=== PATIENT | female | born 1955 | race Caucasian/White ===

== ENCOUNTER → 2016-08-11 | Outpatient (CLI) | payer OTHER ==
[~2016-08-11] MED LIST: CALC600T12 PO; OMEG340C PO; PRIMROSE OIL PO; PROBCAP4 PO; TAB-TAB PO; THYROID SUPPORT PO; TURMCAP PO; VITA500015 PO; VITATAB11 PO; [UNRECOGNIZED DRUG - CODE] PO
[2016-08-11 12:34] LABS: BACTERIA, URINE RARE /hpf; BLOOD, URINE NEG (NEG); GLUCOSE,URINE NEG (NEG); KETONE, URINE NEG (NEG); MUCUS URINE FEW /lpf (OCC); NITRITE,URINE NEG (NEG); SQUAMOUS EPITHELIAL CELL URINE <1 /hpf (0-5); URINE COLOR LIGHT-YELLOW (YELLW/STRAW)
== END ==
LOC: OLAB 07:57
PROVIDERS: ATTEND Obstetrics & Gynecology
DX: N39.0 Urinary tract infection, site not specified (principal); B96.89 Other specified bacterial agents as the cause of diseases classified elsewhere
CPT/HCPCS: 81001; 87077; 87086; 87186

== ENCOUNTER → 2017-09-27 | Outpatient (CLI) | payer OTHER ==
[2017-09-27 16:55] LABS: AUTOMATED NEUTROPHIL # 1.9 TH/MM3 (1.8-7.7); BASOPHIL % 1.4 % (0.0-2.0); EOSINOPHIL # 0.1 TH/MM3 (0-0.4); EOSINOPHIL % 2.9 % (0.0-4.0); HEMATOCRIT 36.1 % (35.0-46.0); HEMOGLOBIN 12.1 GM/DL (11.6-15.3); LYMPH % 17.3 % (9.0-44.0); LYMPHOCYTE # 0.5 TH/MM3 (1.0-4.8); MEAN CELL VOLUME 92.6 FL (80.0-100.0); MEAN CORPUSCULAR HGB CONC 33.5 % (32.0-36.0); MEAN PLATELET VOLUME 10.8 FL (7.0-11.0); MONO % 12.4 % (0.0-8.0); MONOCYTE # 0.4 TH/MM3 (0-0.9); PLATELET COUNT 188 TH/MM3 (150-450); RED CELL DISTRIBUTION WIDTH 13.6 % (11.6-17.2); WHITE BLOOD COUNT 2.8 TH/MM3 (4.0-11.0)
[2017-09-27 17:03] LABS: ALBUMIN 3.7 GM/DL (3.4-5.0); AST (GOT) 29 U/L (15-37); BICARBONATE 28.5 MEQ/L (21.0-32.0); BLOOD UREA NITROGEN 10 MG/DL (7-18); CHLORIDE 104 MEQ/L (98-107); CREATININE 0.76 MG/DL (0.50-1.00); GLOMERULAR FILTRATION RATE 77 ML/MIN (>89); GLUCOSE,FASTING 81 MG/DL (74-99); SODIUM (NA) 138 MEQ/L (136-145)
[2017-09-27 17:04] LABS: ALT (GPT) 30 U/L (10-53)
[2017-09-27 17:30] LABS: ALKALINE PHOSPHATASE 75 U/L (45-117); TOTAL BILIRUBIN ADULT 0.2 MG/DL (0.2-1.0); TOTAL PROTEIN 7.7 GM/DL (6.4-8.2)
[2017-09-30 19:52] LABS: A FUMIGATUS LESS THAN 0.10 kU/L; A FUMIGATUS CLASS 0; A TENUIS LESS THAN 0 kU/L; A TENUIS CLASS 0; BAHIA GRASS LESS THAN 0.10 kU/L; BAHIA GRASS CLASS 0; BERMUDA GRASS LESS THAN 0.10 kU/L; BERMUDA GRASS CLASS 0; BIRCH LESS THAN 0.10 kU/L; BIRCH CLASS 0; C HERBARUM LESS THAN 0.10 kU/L; C HERBARUM CLASS 0; CAT DANDER LESS THAN 0.10 kU/L; CAT DANDER CLASS 0; COCKROACH LESS THAN 0.10 kU/L; COCKROACH CLASS 0; CODFISH CLASS 0; CODFISH IGE LESS THAN 0.10 kU/L; COMMON PIGWEED LESS THAN 0.10 kU/L; COMMON PIGWEED CLASS 0; COMMON RAGWEED LESS THAN 0.10 kU/L; COMMON RAGWEED CLASS 0; COWS MILK CLASS 0; COWS MILK IGE LESS THAN 0.10 kU/L; D FARINAE LESS THAN 0.10 kU/L; D FARINAE CLASS 0; D PTERONYSSINUS LESS THAN 0.10 kU/L; D PTERONYSSINUS CLASS 0; DOG DANDER LESS THAN 0.10 kU/L; DOG DANDER CLASS 0; EGG WHITE LESS THAN 0.10 kU/L; EGG WHITE CLASS 0; ELM LESS THAN 0.10 kU/L; ELM CLASS 0; IMMUNOGLOBULIN E 50 kU/L (114 OR LESS); MAPLE (BOX ELDER) LESS THAN 0.10 kU/L; MAPLE (BOX ELDER) CLASS 0; MOUNTAIN CEDAR LESS THAN 0.10 kU/L; MOUNTAIN CEDAR CLASS 0; NETTLE LESS THAN 0.10 kU/L; NETTLE CLASS 0; OAK WHITE LESS THAN 0.10 kU/L; OAK WHITE CLASS 0; P NOTATUM LESS THAN 0.10 kU/L; P NOTATUM CLASS 0; PEANUT LESS THAN 0.10 kU/L; PEANUT CLASS 0; PECAN TREE LESS THAN 0.10 kU/L; PECAN TREE CLASS 0; SCALLOP LESS THAN 0.10 kU/L; SCALLOP CLASS 0; SESAME SEED LESS THAN 0.10 kU/L; SESAME SEED CLASS 0; SHEEP SORREL LESS THAN 0.10 kU/L; SHEEP SORREL CLASS 0; SHRIMP LESS THAN 0.10 kU/L; SHRIMP CLASS 0; SOYBEAN LESS THAN 0.10 kU/L; SOYBEAN CLASS 0; TIMOTHY GRASS LESS THAN 0.10 kU/L; TIMOTHY GRASS CLASS 0; WALNUT LESS THAN 0.10 kU/L; WALNUT CLASS 0; WHEAT LESS THAN 0.10 kU/L; WHEAT CLASS 0
== END ==
LOC: PLAB 14:13
PROVIDERS: ATTEND Family Medicine
DX: L50.8 Other urticaria (principal); Z83.49 Family history of other endocrine, nutritional and metabolic diseases; D72.819 Decreased white blood cell count, unspecified; R74.8 Abnormal levels of other serum enzymes; E78.2 Mixed hyperlipidemia; E55.9 Vitamin D deficiency, unspecified; Z11.59 Encounter for screening for other viral diseases; E53.8 Deficiency of other specified B group vitamins
CPT/HCPCS: 36415; 80053; 82172; 82306; 82607; 82785; 84443; 85025; 86003; 86803

== ENCOUNTER → 2017-10-29 | Outpatient (CLI) | payer OTHER ==
[2017-10-29 14:22] LABS: FREE T3 2.2 PG/ML (2.18-3.98); FREE T4 0.85 NG/DL (0.76-1.46)
== END ==
LOC: OLAB 09:24
PROVIDERS: ATTEND Family Medicine
DX: Z13.29 Encounter for screening for other suspected endocrine disorder (principal)
CPT/HCPCS: 36415; 84439; 84481